=== PATIENT | female | born 2000 | race Caucasian/White ===

== ENCOUNTER 2020-01-17 20:22 | Emergency (ER) | payer MEDICAID ==
[~2020-01-17] VITALS: Ht 175.3 cm; Wt 59.0 kg
[2020-01-17] MEDS ORDERED: SODIUM CHLORIDE 0.9% 1,000 ML IV ONE (20:39)
[2020-01-17 22:07] LABS: BASOPHILS % 0.6 % (0.0-2.0); EOSINOPHILS % 4.6 % (0.0-5.0); HEMATOCRIT. 36.7 % (36.0-48.0); HEMOGLOBIN. 12.6 g/dL (12.0-16.0); LYMPHOCYTES % 28.4 % (20.0-50.0); MEAN CORPUSCULAR HEMOGLOBIN 28.3 pg (28.0-32.0); MEAN CORPUSCULAR VOLUME 82.8 fL (81.0-99.0); MEAN PLATELET VOLUME 8.9 fl (7.4-10.4); MONOCYTES % 7.1 % (2.0-8.0); NEUTROPHILS % 59.3 % (40.0-76.0); PLATELET 264 x1000/uL (130-400); RED BLOOD CELL COUNT 4.44 mill/uL (4.2-5.4); RED CELL DISTRIBUTION WIDTH 14.2 % (11.6-14.6)
[2020-01-17 22:08] LABS: CHLORIDE 105 mEq/L (98-107)
[2020-01-17 22:14] LABS: ETHANOL BLOOD < 10 mg/dL
[2020-01-17 23:53] VITALS: BP 117/72
== END 2020-01-18 | disposition home or self-care (01) ==
LOC: ER 20:22
DX: R42 Dizziness and giddiness (principal); I95.9 Hypotension, unspecified; F41.9 Anxiety disorder, unspecified; F32.9 Major depressive disorder, single episode, unspecified
CPT/HCPCS: 36415; 80053; 80307; 80320; 80329; 81025; 85025; 96360; 99283; J7030; G0480